=== PATIENT | male | born 2000 | race Caucasian/White ===

== ENCOUNTER 2021-11-10 16:07 | Emergency (ER) | payer MEDICAID, SELFPAY ==
[2021-11-10 16:13] VITALS: BP 132/78; PULSE 110; RESP 14; TEMP 37; O2SAT 100; BMI 19.0
--- NOTE | 2021-11-10 17:21 | ED.EYEPROB ---
HPI - Eye Problem General Date Seen: 11/10/21 Chief complaint: Eye Problems Stated complaint: OBJECT IN RIGHT EYE Time Seen by Provider: 11/10/21 16:14 Source: patient Mode of arrival: ambulatory Limitations: no limitations History of Present Illness HPI Narrative: Patient is a very nice 21-year-old gentleman who was at work, working with some wood, he went to cut the would approximately 2 hours ago and got a piece of shaving in his right eye. He feels like it is still in there despite irrigating his eye out at work. He was not wearing contacts, and was not wearing safety glasses. He says his vision is a little bit blurry, but he still able to see. No previous history of eye injury, his immunizations are full and up-to-date. Denies any swelling, or any other issue. chief complaint: eye pain, eye redness and eye injury Onset (ago): hour(s) Onset description: sudden Duration: intermittent Location: right eye Eye Symptoms: foreign body sensation Mechanism: other Severity: moderate If Pain, Quality: burning Treatments Prior to Arrival: irrigated eye Related Data Patient tetanus UTD: Yes Home Medications Medication Instructions Recorded Confirmed No Known Home Medications 11/10/21 11/10/21 Allergies Allergy/AdvReac Type Severity Reaction Status Date / Time No Known Drug Allergies Allergy Verified 11/10/21 16:12 Review of Systems Status of ROS: Reports: 6 or more systems reviewed and unremarkable except as noted in History and below [facility] Social History Smoking Status: Current some day smoker What tobacco products do you use: cigarettes Do you use any of these nicotine containing products: E-Cigarettes, Vaping Products and Smokeless Tobacco Second hand tobacco smoke exposure: Yes How often do you have a drink containing alcohol: never How often do you have six or more drinks on one occasion: Never AUDIT-C Alcohol total score: 0 Non-prescribed substance use: denies use service: No Exam Narrative: Exam Narrative: Examination shows a fit healthy gentleman, squinting with his right eye, his right to sclera and conjunctiva are reddened, the pupils are equal round reactive to light he tracks normally with absence of nystagmus, there is no lid swelling. His upper lid is everted and normal, there is no evidence of any foreign body, lower lid is checked also. I did use some tetracaine 2 drops in his right eye and totally took away the foreign body sensation. He with fluroscein shows that there is corneal abrasion at 1 to 3 o'clock position on his left side of his cornea, no foreign body within it. Accounts for his decreased visual acuity Const: Vital Signs, click to edit/add: Vital Signs - 24 hr 11/10/21 16:13 Temperature 98.6 F Pulse Rate [Left P ulse Oximeter] 110 H Respiratory Rate 14 Blood Pressure [Ri ght Upper Arm] 132/78 Pulse Oximetry 100 Oxygen Delivery Me thod Room Air Reviewed visual acuity is 20/20 left eye and 20/100 right eye Documenting provider has reviewed patient's vital signs: yes Course Vital Signs Vital signs: Initial Vital Signs Temperature 98.6 F 11/10/21 16:13 Temperature Source Temporal Artery Scan 11/10/21 16:13 Pulse Rate 110 H 11/10/21 16:13 Respiratory Rate 14 11/10/21 16:13 Blood Pressure 132/78 11/10/21 16:13 Blood Pressure Mean 96 11/10/21 16:13 Blood Pressure Position Sitting 11/10/21 16:13 Pulse Oximetry 100 11/10/21 16:13 Oxygen Delivery Method 11/10/21 16:13 Vital Signs Temperature 98.6 F 11/10/21 16:13 Pulse Rate 110 H 11/10/21 16:13 Respiratory Rate 14 11/10/21 16:13 Blood Pressure 132/78 11/10/21 16:13 Pulse Oximetry 100 11/10/21 16:13 Oxygen Delivery Method 11/10/21 16:13 Temperature 98.6 F 11/10/21 16:13 Pulse Rate 110 H 11/10/21 16:13 Respiratory Rate 14 11/10/21 16:13 Blood Pressure 132/78 11/10/21 16:13 Pulse Oximetry 100 11/10/21 16:13 Oxygen Delivery Method 11/10/21 16:13 MDM - Eye Problem Differential Diagnosis Differential diagnosis: Likely corneal abrasion, conjunctivitis, acute iritis, hyphema, periorbital cellulitis, subconjunctival hemorrhage, glaucoma, corneal ulcer and ruptured globe Medical Records Attestation: I reviewed the patient's medical records. Discharge Plan Discharge Clinical Impression: Corneal abrasion Patient Disposition: Home, Self-Care Condition: Stable Instructions: Corneal Abrasion (DC) Additional Instructions: Home rest, would suggest eye protection now 1 year working with the wood or metal. Use of drops to help prevent infection. Increasing pain swelling then you need to come back and be seen. This should improve over the next couple days. If it does not then I would like you followed up at the [facility]. Ibuprofen 800 mg p.o. t.i.d.. Prescriptions: No Action No Known Home Medications Follow Up/Referrals: Arnaldo Arnett DO [Referring] - Emeka Fox OD [Referring] - Chicho Carrillo [Referring] - Krish Gonzalez MD [Primary Care Provider] - Leo Muñiz DO [Referring] - Stand Alone Forms: [facility] Info Instructions Procedures Eye Procedure Right: Location: cornea Topical anesthetic used: tetracaine Evidence of corneal penetration: No Procedure performed under: direct visualization with magnification and slit-lamp Post-procedure medication: topical anesthetic Patient tolerated procedure: well and no complications
[2021-11-10] MEDS: IBUPROFEN 200 MG TABLET 600 MG PO (17:25)
[2021-11-10] MEDS: FLUORESCEIN SODIUM TOPICAL STRIP 1 STRIP EYE-RIGHT (17:28)
[2021-11-10] MEDS: TETANUS/DIPHTH/PERTUSSIS 0.5 ML SYRINGE IM (17:46)
[2021-11-10] MEDS: TETRACAINE 0.5% OPHTH 2 DROP EYE-RIGHT (17:46)
[2021-11-10] MEDS: GENTAMICIN 0.3% OPHTH 2 DROP EYE-RIGHT (17:46)
== END 2021-11-10 18:12 | disposition home or self-care (01) ==
PROVIDERS: Emergency Provider Family Medicine; PCP Family Medicine
DX: S05.01XA Injury of conjunctiva and corneal abrasion without foreign body, right eye, initial encounter (principal); W27.0XXA Contact with workbench tool, initial encounter; Y93.89 Activity, other specified; Y92.89 Other specified places as the place of occurrence of the external cause; Y99.9 Unspecified external cause status
CPT/HCPCS: 90471; 90715; 99283; A9270